=== PATIENT | male | born 2000 | race Two or more races ===

== ENCOUNTER 2023-04-18 16:51 | Emergency (ER) | payer MEDICAID, OTHER ==
[~2023-04-18] VITALS: Ht 172.7 cm; Wt 78.9 kg
[2023-04-18 18:31] VITALS: BP 106/61
[2023-04-18] MEDS ORDERED: CEPH500C PO (18:52)
== END 2023-04-18 18:59 | disposition home or self-care (01) ==
LOC: ER 16:51
DX: S70.362A Insect bite (nonvenomous), left thigh, initial encounter (principal); S70.361A Insect bite (nonvenomous), right thigh, initial encounter; W57.XXXA Bitten or stung by nonvenomous insect and other nonvenomous arthropods, initial encounter; Y93.89 Activity, other specified; Y92.89 Other specified places as the place of occurrence of the external cause; Y99.8 Other external cause status